=== PATIENT | male | born 1945 | race Caucasian/White ===

== ENCOUNTER 2016-05-13 12:06 | Inpatient (IN) | payer MEDICARE ==
--- NOTE | ~2016-05-13 | PREOPHP ---
PreOp History and Physical [facility] [address] [place]. [address] NAME: EYAL MAN : 45 STATUS : ADM IN PAT#: [id number] AGE: 70 ADM/REG DATE : 05/13/16 MR#: [id number] REPORT SERV DATE: 05/14/16 DICTATED BY: BRIAN PRADO DATE: 05/13/16 REPORT STATUS : Draft TRANSCRIBED BY: MODShadi DATE: 05/13/16 CHIEF COMPLAINT: Intractable back pain and right leg pain. HISTORY OF PRESENT ILLNESS: A very pleasant 70-year-old male who I saw in the office just a couple days ago. At that time, he was in a wheelchair and could barely stand or walk, could not even go into the x-ray suite without having assistance in the walker. Pain was 10/10 and the pain had really worsened markedly over a period of just a few weeks. He has had some degree of back pain for years, but has gotten dramatically worse just recently to the point that his pain was totally intolerable with again 10/10 pain, could not stand or walk or weight bear, etc. It is intensified with any attempts at standing and walking. The patient on exam was completely listed to the left. He had a positive straight leg raising sign. He was very limited in his mobility. He has weakness of his tibialis anterior and EHL graded 4 to 4-/5. On plain x-ray, he a grade 2 spondylolisthesis. I felt that he also did have an obvious drop foot by physical exam. We sent him for an urgent MRI, which is now demonstrating moderate spinal stenosis at L3-4, but at L4-5, there is severe foraminal impingement secondary to a new disc herniation as well as spondylolisthesis. There is some central canal stenosis associated with spondylolisthesis and some ligamentum flavum hypertrophy. The patient returned today to review the MRI and said he just could not take the pain another day that the pain was so intractable. He is not sleeping and the oral narcotic oxycodone was not working. His is saying that something had to be done because he just could not take the pain any longer. He has had no alteration in bowel and bladder function. The patient in acute painful distress today, it was obvious. For this reason, I admitted him for IV pain control for the acute painful back and right leg pain, and if he does not improve quickly with some pain medication and steroid, then he will need to proceed with further intervention. PAST MEDICAL HISTORY: Includes he has had some mild COPD. He has had no AZ, etc. He does see Dr. Riggs, upper and bottom lacer hand, mainly for just checkups. PAST SURGICAL HISTORY: Includes a knee arthroscopy, carpal tunnel release, and he has had a right total hip arthroplasty in 2010. CURRENT MEDICATIONS: Atorvastatin, lisinopril, and oxycodone. ALLERGIES: NONE. SOCIAL HISTORY: He is . Retired from [employer] after 34 years. Does not use any tobacco or alcohol. FAMILY HISTORY: His mother had cancer. His father had coronary artery disease and AZ. His brother had diabetes. REVIEW OF SYSTEMS: Otherwise completely negative. PreOp History and Physical [address] [address] NAME: EYAL MAN : 45 STATUS : ADM IN [facility]#: [id number] AGE: 70 ADM/REG DATE : 05/13/16 MR#: [id number] REPORT SERV DATE: 05/14/16 DICTATED BY: BRIAN PRADO DATE: 05/13/16 REPORT STATUS : Draft TRANSCRIBED BY: KWAME DATE: 05/13/16 PHYSICAL EXAMINATION: VITAL SIGNS: He is 5 feet 3 inches and 192 pounds. BMI is 32.8. GENERAL: He is alert and cooperative. He is well oriented. He is in acute painful distress. HEENT: He has receding hairline. He is normocephalic. Pupils are equal and reactive to light. Extraocular muscles are intact. Oral exam is grossly normal. LUNGS: Clear to auscultation. HEART: Rate is regular and rhythmic. ABDOMEN: Soft with good bowel sounds. No peritoneal signs noted. MUSCULOSKELETAL: The spine itself is severely spastic. He is listed again to the left. He has a positive straight leg raising at 30-40 degrees on the right, sitting. He has a partial drop foot persisting on the right with strength of 4-/5 for the tibialis anterior and EHL. His posterior tibialis is also the same 4-/5. He obviously cannot even stand to try to do a heel walk or toe walk. Patellar reflexes are 1+/4. His Achilles reflexes are just a trace, but they are symmetrical. Toes are downgoing. No ankle clonus is found. There is decreased sensation in the L5 distribution and some decrease in the L4 distribution on the right to light touch. Pinwheel shows decreased sensation in the L4 distribution on the right compared to the left. Orthopedically, he has previous lateral right hip incision. No signs abnormality. He has no pain with moving hips, knees, or ankles. There are good pulses in all four extremities. No abnormal skin lesions are found. ASSESSMENT: Grade 2 spondylolisthesis at L4-5, new herniated nucleus pulposus, and associated acquired spinal stenosis with acute intractable right-sided radiculopathy. RECOMMENDATIONS: IV pain medication and IV steroid. If this does not resolve, the patient will be taken to surgery. BETH/KWAME Brian Prado D.O. / [id number] CC: Brian Prado D.O.
--- NOTE | ~2016-05-13 | OP ---
Record Of Operation [facility] [address] [place]. [address] NAME: EYAL MAN : 45 STATUS : ADM IN PAT#: [id number] AGE: 70 ADM/REG DATE : 05/13/16 MR#: [id number] REPORT SERV DATE: 05/14/16 DICTATED BY: BALDO PRADO DATE: 05/14/16 REPORT STATUS : Draft TRANSCRIBED BY: MODL DATE: 05/14/16 DATE OF PROCEDURE: PREOPERATIVE DIAGNOSES: 1. Grade 1/2 spondylolisthesis. 2. Severe spinal stenosis, L4-5. POSTOPERATIVE DIAGNOSES: 1. Grade 1/2 spondylolisthesis. 2. Severe spinal stenosis, L4-5. PROCEDURES: 1. Microscopic navigation-assisted surgery. 2. Anterior retroperitoneal approach for an oblique diskectomy, lateral interbody cage insertion (Clydesdale lateral interbody fusion). 3. There was also an oblique lateral diskectomy at the same level. There was posterior percutaneous Voyager instrumentation as well at L4-5. SURGEON: Baldo Prado D.O. DIRECTOR OF LABORATORY OPERATIONS: Juan Hammer. ANESTHESIA: General. BLOOD LOSS: 50 mL or less. INDICATION FOR SURGERY: These are listed in the history and physical. PROCEDURE IN DETAIL: Antibiotic prophylaxis was given. Neurophysiology monitoring leads were inserted. The patient was brought to the operative suite. General anesthetic including endotracheal intubation was administered. Abdul catheter was placed with sterile technique. The patient was placed in the lateral decubitus position and the left side was up. A small bolster was placed at the iliac crest. An axillary roll was placed. The patient was then carefully taped tightly to the bed and secured firmly. Intraoperative AP and lateral x-rays were taken showing good AP and lateral position, and there were no rotational deformities. The isolation drapes were placed. The left side of the abdomen, left flank, and left thoracolumbar spine were scrubbed with Hibiclens solution. DuraPrep was painted. Sterile drapes were applied. Because of the complexity of surgery, the need to identify correct level of surgery intraoperatively, as well as desire to carry out the safest and most precise dissection, we felt that intraoperative navigation was mandatory. A small stab wound was carried out over the left posterosuperior iliac spine. A percutaneous pin with navigational frame attached was inserted in the PSIS. Intraoperative CT scan with O-arm was obtained, CT information was used to register the navigational Record Of Operation [address] [place]. [address] NAME: EYAL MAN : 45 STATUS : ADM IN PAT#: [id number] AGE: 70 ADM/REG DATE : 05/13/16 MR#: [id number] REPORT SERV DATE: 05/14/16 DICTATED BY: BALDO PRADO DATE: 05/14/16 REPORT STATUS : Draft TRANSCRIBED BY: KWAME DATE: 05/14/16 system. With navigational assistance, I identified the L4-5. I chose the appropriate location for incision based off with navigational planning. It was made in an anterolateral approach. A 3-4 cm skin incision was carried out slightly oblique. The external oblique muscle was opened bluntly. The internal oblique muscle was opened bluntly, and I then used the index finger to dissect into the retroperitoneum where the psoas muscle was easily palpable. I palpated the anterior edge of the psoas muscle. There was a psoas minor tendon and a blunt lighted retractor was placed in the wound. The psoas minor tendon was so tight that I felt I had to enter behind the tendon rather than anterior. I then placed the second retractor medially and anteriorly and after protecting the vessels medial, anterior, as well as the psoas muscle posteriorly, I used and navigated initial dilator, passed it through the retroperitoneum docking at the anterolateral corner of the disk space. Once the initial dilator was docked, muscle dilators were inserted followed by placement of a tubular retractor attached to an arm mount on the table. The microscope was sterilely draped and used throughout the remainder of the procedure. We did stimulate within the circumference of the retractor. No abnormality found. A rectangular annulectomy was carried out. I then carried out an anterolateral L4-5 diskectomy with curettes, rongeurs, disk lary, etc. During the diskectomy, I did use an orthogonal maneuver. This was starting anterolateral and as I would move across the interbody space, I would move my hand and instruments into a more direct lateral position to completely remove all the disks and endplate cartilage from the anterior longitudinal ligament all the way back to the posterior longitudinal ligament. After complete diskectomy, the contralateral annulus was released with a bayoneted Garcia. The wound was irrigated. Navigated trials were used and we determined the appropriate size cage was a 50 mm in length, 22 mm in depth and 12 mm in height. The permanent cage was filled with allograft. After wound irrigation, the permanent cage was inserted using the orthogonal maneuver and once it was properly positioned, the phone representative was removed. The retractor was closed. We then slowly withdrew the retractor and under direct vision, I then inserted with no abnormality within the retroperitoneum. The internal oblique and external oblique were closed individually with interrupted #1 PDS suture. The subcutaneous tissue was closed with 2-0 Vicryl suture, 2-0 vertical mattress nylon suture was used for skin closure. Sterile dressings were applied. The patient was then repositioned into a prone position after being carefully padded and bony prominences were carefully checked. The isolation drapes were placed. The thoracolumbar spine was scrubbed with Hibiclens solution. DuraPrep was painted. Sterile drapes were applied. We then re-registered the navigational system and with navigational assistance, I chose the location of a 2.5 cm skin incision just lateral to the facet on the left and right side. I then used a percutaneous Voyager pedicle tap and screw phone representative. I tapped through the pedicles of L4 and 5 bilaterally. Polyaxial Voyager screws with 6.5 x 50 mm in length were inserted at all four locations. A 35 mm kyler was then placed through the top portion of the Record Of Operation [address] [id number] NAME: TYRA EYAL PARIS MOOSE : 45 STATUS : ADM IN [facility]#: [id number] AGE: 70 ADM/REG DATE : 05/13/16 MR#: [id number] REPORT SERV DATE: 05/14/16 DICTATED BY: BALDO PRADO DATE: 05/14/16 REPORT STATUS : Draft TRANSCRIBED BY: MODL DATE: 05/14/16 screw extenders, reduced into the tulip of the pedicle screw. The set screws were inserted and tightened with a torque wrench providing rigid stability. Screw extenders were removed. Intraoperative CT scan with O-arm was repeated showing good position of all implants. The fascial opening was closed with just a single interrupted #1 Vicryl suture. The subcutaneous tissue was closed with 2-0 Vicryl sutures, 2-0 vertical mattress nylon suture was used for skin closure. Sterile dressings were applied. The patient was awakened, extubated, and taken to the recovery room in satisfactory condition having tolerated the procedure well. BETH/KWAME Baldo Prado D.O. / [id number] CC: Baldo Prado D.O.
--- NOTE | ~2016-05-13 | DS ---
Discharge Summary [facility] [address] [place]. [address] NAME: EYAL MAN : 45 STATUS : DIS IN PAT#: [id number] AGE: 70 ADM/REG DATE : 05/13/16 MR#: [id number] REPORT SERV DATE: 05/28/16 DICTATED BY: BRIAN PRADO DATE: 05/27/16 REPORT STATUS : Draft TRANSCRIBED BY: KWAME DATE: 05/27/16 Data Collection from hospitalization DISCHARGE DIAGNOSES: 1. Grade 1-2 spondylolisthesis. 2. Severe spinal stenosis, L4-L5. 3. Chronic obstructive pulmonary disease, mild. 4. Hypertension. CONSULTATIONS: None. PROCEDURES PERFORMED: Microscopic navigation-assisted surgery, anterior retroperitoneal approach for an oblique diskectomy, lateral interbody cage insertion, Clydesdale lateral interbody fusion. There was also an oblique lateral diskectomy at the same level. There was posterior percutaneous Voyager instrumentation as well at L4-L5 on 05/14/2016. PATHOLOGY: Bone and tissue, lumbar spine, L4-L5 laminectomy, fragments of fibrocartilage consistent with disk material, crystalline deposition compatible with calcium pyrophosphate. MEDICATIONS: Lipitor 20 mg daily, Colace 100 mg twice daily, Monopril 40 mg daily. CONDITION AT DISCHARGE: Upon discharge, he did appear to be doing well and had no complaints. DISPOSITION: He had been discharged to home to continue a regular diet with activity as discussed. He was to follow up with Kristen Resendez in two weeks at the [facility]. HOSPITAL COURSE: This very pleasant 70-year-old male is a patient whom I had seen in the office a couple of days prior to admission. At that time, he was in a wheelchair and could barely stand or walk and could not even go into the x-ray suite without having assistance and a walker. His pain was 10/10, and the pain had really worsened markedly over a period of just a few weeks. He had had some degree of back pain for years, but it got dramatically worse just recently to the point that his pain was totally intolerable with again 10/10 pain. He could not stand, walk, weight bear, etc. It was intensified with any attempts at standing and walking. On exam, he was completely listed to the left. He had a positive straight leg raising sign. He was very limited in his mobility. He had weakness of his tibialis anterior and EHL, grade 4 to 4/5. On plain x-ray, he had a grade 2 spondylolisthesis. I had felt that he also had an obvious drop foot by physical exam. He was sent for an urgent MRI, which was demonstrating moderate spinal stenosis at L3-L4, but at L4-L5, there was severe foraminal impingement secondary to new disk herniation as well as spondylolisthesis. There was some central canal stenosis associated with spondylolisthesis and ligamentum flavum hypertrophy. He had returned on the day of admission to review the MRI and said that he just could not take the pain another day that the pain was so intractable, he was not sleeping and the oral narcotic oxycodone was not working. His was saying that something had to be done because he just could not take the pain any longer. He had had no alteration in bowel or bladder function. The patient was in acute painful distress that was obvious. For this reason, he was admitted for IV pain control for the acute painful back and right leg pain and if he did not improve quickly with some pain Discharge Summary [place] [id number] [facility] [place]. [address] NAME: EYAL MAN : 45 STATUS : DIS IN PAT#: [id number] AGE: 70 ADM/REG DATE : 05/13/16 MR#: [id number] REPORT SERV DATE: 05/28/16 DICTATED BY: BRIAN PRADO DATE: 05/27/16 REPORT STATUS : Draft TRANSCRIBED BY: MODL DATE: 05/27/16 medication and steroid, then he would need to proceed with further intervention. Upon admission to the hospital, he had been placed on Dilaudid GLAZIER STAINED GLASS for pain control and was also begun on Zofran at 4 mg IV every six hours as needed. Following the day of admission, he was taken to the operating room, where he did undergo the above procedure. He had tolerated this well and was transferred to the recovery room. On postop day one, he did appear to be doing well and did have good pain control. GLAZIER STAINED GLASS was discontinued as was his Abdul catheter. He was also evaluated by Physical Therapy. On postop day two, he had continued to do well and had no leg pain noted. He was afebrile, and his vital signs had remained stable. On postop day three, his incision looked good and he had continued to slowly improve. He was therefore discharged with the above instructions. Information collected by: Shonna Welch. I submit the above information as my discharge summary. CHA/KWAME Brian Prado D.O. / [id number] CC: Brian Prado D.O.
[~2016-05-13 12:06] MED LIST: ACET500CAP PO; AUG500 PO; HCTZ25B PO; LIPITOR20 PO; MONOPRIL40 MG PO
[2016-05-13] MEDS ORDERED: MONOPRIL40 MG PO (13:01)
[2016-05-13] MEDS ORDERED: LIPITOR20 PO (13:02)
[2016-05-13] MEDS ORDERED: GLUCCHONDR PO (13:02)
[2016-05-13] MEDS ORDERED: VITC500 PO (13:02)
[2016-05-13] MEDS ORDERED: FISH-EPA1000 MG PO (13:03)
[2016-05-13 14:15] LABS: BASOPHILS 0.2 %; BASOPHILS ABSOLUTE 0.01 10/3/uL (0.0-0.16); EOSINOPHILS 2.5 %; EOSINOPHILS ABSOLUTE 0.16 10/3/uL (0.0-0.53); HEMATOCRIT 40.4 % (40.0-51.0); HEMOGLOBIN 13.8 g/dL (13.6-17.8); IMMATURE GRANULOCYTES 0.3 %; IMMATURE GRANULOCYTES ABSOLUTE 0.02 10/3/uL (0.0-0.11); LYMPHOCYTES 14.6 %; LYMPHOCYTES ABSOLUTE 0.95 10/3/uL (0.67-4.30); MANUAL DIFF NO %; MEAN CORPUS HGB CONC 34.2 g/dL (32.0-36.0); MEAN CORPUSCULAR VOLUME 93.7 fL (80-100); MEAN PLATELET VOLUME 9.6 fL (9.2-13.0); MONOCYTES ABSOLUTE 0.39 10/3/uL (0.21-1.20); NEUTROPHILS 76.4 %; NEUTROPHILS ABSOLUTE 4.97 10/3/uL (2.02-8.40); PLATELET COUNT 215 10/3/uL (150-400); RBC DISTRIBUTION WIDTH 13.6 % (12.0-16.0); RED CELL COUNT 4.31 10/6/uL (4.7-6.1); WHITE BLOOD CELLS 6.5 10/3/uL (4.5-10.5)
[2016-05-13 14:20] LABS: INTERNATIONAL NORMAL RATI 1.1 UNITS (-)
[2016-05-13 14:22] LABS: PROTIME (NOT ORD) 14.2 SEC (12.0-14.5)
[2016-05-13 14:24] LABS: BUN (BLOOD UREA NITROGEN) 19 MG/DL (6-23); CALCIUM, SERUM 9.1 MG/DL (8.5-10.4); CHLORIDE, SERUM 106 MMOL/L (96-112); CO2 (CARBON DIOXIDE) 26 MMOL/L (24-34); CREATININE 0.97 MG/DL (0.70-1.30); GFR AFRICAN AMERICAN 91 ML/MIN (>=60); GFR NON AFRICAN AMERICAN 79 ML/MIN (>=60); GLUCOSE, SERUM 109 MG/DL (60-99); SODIUM, SERUM 142 MMOL/L (135-148)
[2016-05-15 06:01] LABS: BASOPHILS 0.1 %; BASOPHILS ABSOLUTE 0.01 10/3/uL (0.0-0.16); EOSINOPHILS 0.5 %; EOSINOPHILS ABSOLUTE 0.06 10/3/uL (0.0-0.53); HEMATOCRIT 37.3 % (40.0-51.0); HEMOGLOBIN 12.8 g/dL (13.6-17.8); IMMATURE GRANULOCYTES 0.3 %; IMMATURE GRANULOCYTES ABSOLUTE 0.04 10/3/uL (0.0-0.11); LYMPHOCYTES 10.6 %; LYMPHOCYTES ABSOLUTE 1.25 10/3/uL (0.67-4.30); MEAN CORPUS HGB CONC 34.3 g/dL (32.0-36.0); MEAN CORPUSCULAR VOLUME 93.3 fL (80-100); MEAN PLATELET VOLUME 9.6 fL (9.2-13.0); MONOCYTES 9.2 %; MONOCYTES ABSOLUTE 1.08 10/3/uL (0.21-1.20); NEUTROPHILS 79.3 %; NEUTROPHILS ABSOLUTE 9.31 10/3/uL (2.02-8.40); PLATELET COUNT 204 10/3/uL (150-400); RBC DISTRIBUTION WIDTH 13.3 % (12.0-16.0)
[2016-05-15 06:04] LABS: MANUAL DIFF NO %; WHITE BLOOD CELLS 11.8 10/3/uL (4.5-10.5)
[2016-05-15 06:09] LABS: BUN (BLOOD UREA NITROGEN) 18 MG/DL (6-23); CALCIUM, SERUM 8.7 MG/DL (8.5-10.4); CHLORIDE, SERUM 107 MMOL/L (96-112); CO2 (CARBON DIOXIDE) 27 MMOL/L (24-34); CREATININE 1.22 MG/DL (0.70-1.30); GFR AFRICAN AMERICAN 69 ML/MIN (>=60); GFR NON AFRICAN AMERICAN 60 ML/MIN (>=60); SODIUM, SERUM 142 MMOL/L (135-148)
[2016-05-15 06:11] LABS: GLUCOSE, SERUM 134 MG/DL (60-99)
[2016-05-16] MEDS ORDERED: METHOC500B PO (09:55)
[2016-05-16] MEDS ORDERED: OXYCOD PO (09:55)
== END 2016-05-16 14:23 | disposition home or self-care (01) | DRG 455 ==
LOC: 3SO 12:06
PROVIDERS: Orthopaedic Surgery Orthopaedic Surgery of the Spine
PROC: 0SG00A0 Fusion of Lumbar Vertebral Joint with Interbody Fusion Device, Anterior Approach, Anterior Column, Open Approach (ICD-10-PCS; principal; 2016-05-13)
PROC: 0SG0071 Fusion of Lumbar Vertebral Joint with Autologous Tissue Substitute, Posterior Approach, Posterior Column, Open Approach (ICD-10-PCS; 2016-05-13)
PROC: 0ST20ZZ Resection of Lumbar Vertebral Disc, Open Approach (ICD-10-PCS; 2016-05-13)
PROC: 4A11X4G Monitoring of Peripheral Nervous Electrical Activity, Intraoperative, External Approach (ICD-10-PCS; 2016-05-13)
DX: M51.16 Intervertebral disc disorders with radiculopathy, lumbar region (principal); I10 Essential (primary) hypertension
CPT/HCPCS: 71020; 72148; 80048; 82962; 85025; 85610; 88304; 88311; 93005; 97162-GP; A9270-GY; C1713; G8978-CJ-GP; G8979-CH-GP; J0690; J1644; J2250; J2270; J2405; J2710; J3010; J3370